=== PATIENT | female | born 1975 | race Caucasian/White ===

== ENCOUNTER 2018-03-27 10:19 | Outpatient (CLI) | payer OTHER ==
--- NOTE | 2018-03-27 12:04 | RAD ---
LEFT SHOULDER ARTHROGRAM: History: Shoulder pain. No known injury. FINDINGS: After informed consent was obtained, the patient was prepped and draped in normal sterile fashion. Lo twila anesthesia was obtained with 1% Xylocaine. A 22 gauge needle was inserted into the anterior lower third of the joint space without difficulty. Approximately 12 cc of a mixture of dilute MultiHance a nd nonionic contrast were injected with good opacification of the joint space. The patient tolerated the procedure well. There were no immediate complications. IMPRESSION: Successful left shoulder arthrogram. Please see MRI report concerning findings. POS: [facility]
--- NOTE | 2018-03-27 14:34 | MRI ---
POST ARTHROGRAM MRI OF LEFT SHOULDER PERFORMED WITH CONTRAST: Date: 03/27/18 HISTORY: Left shoulder pain. No known injury. FINDINGS: The AC joint appears unremarkable. The acromion is a curved acromion with slight anterior hooking thr ough the acromion. The supra and infraspinatus tendons appear intact. Subscapularis muscle and tendon are normal in appearance. The biceps tendon is normal in position. Labrum appears intact. No signs of any labral tear. Inferior glenohumeral ligament is intact. IMPRESSION: 1. No evidence of rotator cuff or labral injury. 2. Slight anterior hooking to the acromion. POS: [facility]
== END 2018-03-27 10:20 | disposition home or self-care (01) ==
LOC: RAD 10:19
PROVIDERS: ATTEND Pediatrics Sports Medicine
DX: M25.512 Pain in left shoulder (principal)
CPT/HCPCS: 23350

== ENCOUNTER 2018-04-09 13:40 | Outpatient (CLI) | payer OTHER | END 2018-04-09 13:41 | disposition home or self-care (01) | LOC: BICMAMMO 13:40 | PROVIDERS: ATTEND Nurse Practitioner Family | DX: Z12.31 Encounter for screening mammogram for malignant neoplasm of breast (principal); Z98.82 Breast implant status | CPT/HCPCS: 77063; 77067 ==

== ENCOUNTER 2018-10-08 11:10 | Outpatient (CLI) | payer OTHER ==
--- NOTE | 2018-10-08 11:24 | RAD ---
CERVICAL SPINE THREE VIEWS: HISTORY: Neck pain. TECHNIQUE: AP, lateral, and open-mouth odontoid views of the cervical spine are obtained. COMPARISON: Comparison made to previous exam from 04/18/2016. FINDINGS: The patient has had previous ACDF with fusion of the C5-C6 vertebral levels using plates and screws. Intervertebral disc hardware also in place. No evidence of significant interval changes seen. Vertebral bodies are unremarkable. No significant evidence of anterolisthesis or retrolisthesis is seen. No newly developed degenerating disc level seen. IMPRESSION: Stable three views cervical spine with anterior cervical diskectomy and fusion, C5-C6. Transcribed Date/Time: 10/08/2018 11:33 AM
== END 2018-10-08 11:11 | disposition home or self-care (01) ==
LOC: TBSIIMAG 11:10
PROVIDERS: ATTEND Neurological Surgery
DX: M54.2 Cervicalgia (principal); Z98.1 Arthrodesis status; Z98.890 Other specified postprocedural states
CPT/HCPCS: 72040

== ENCOUNTER 2020-04-15 15:19 | Outpatient (CLI) | payer OTHER ==
--- NOTE | 2020-04-15 16:01 | MMO ---
Bilateral MAMMO Bilat Screen [facility]. CLINICAL HISTORY: Patient is 44 years old and is seen for screening. The patient has no family history of breast cancer. The patient has no personal history of cancer. The patient has a history of bilateral Implants in 2010. VIEWS: The views performed were: bilateral craniocaudal with tomosynthesis and bilateral mediolateral oblique with tomosynthesis. FILMS COMPARED: The present examination has been compared to a prior imaging study performed at [facility] on 04/09/2018. This study has been interpreted with the assistance of computer-aided detection. MAMMOGRAM FINDINGS: The breasts are heterogeneously dense, which could obscure a lesion on mammography. There are no suspicious masses, suspicious calcifications, or new areas of architectural distortion. IMPRESSION: THERE IS NO MAMMOGRAPHIC EVIDENCE OF MALIGNANCY. A ROUTINE FOLLOW-UP MAMMOGRAM IN 1 YEAR IS RECOMMENDED. THE RESULTS OF THIS EXAM WERE SENT TO THE PATIENT. ACR BI-RADS Category 1 - Negative MAMMOGRAPHY NOTE: 1. A negative mammogram report should not delay a biopsy if a dominant of clinically suspicious mass is present. 2. Approximately 10% to 15% of breast cancers are not detected by mammography. 3. Adenosis and dense breasts may obscure an underlying neoplasm. Reported by: ANGELA PALACIOS MD Electonically Signed: [id number]
== END 2020-04-15 15:20 | disposition home or self-care (01) ==
LOC: BICMAMMO 15:19
PROVIDERS: ATTEND Obstetrics & Gynecology
DX: Z12.31 Encounter for screening mammogram for malignant neoplasm of breast (principal); Z98.82 Breast implant status
CPT/HCPCS: 77063; 77067

== ENCOUNTER 2022-12-12 07:28 | Outpatient (CLI) | payer OTHER | END 2022-12-12 07:29 | disposition home or self-care (01) | LOC: BICULT 07:28 | PROVIDERS: ATTEND Physician Assistant | DX: R10.30 Lower abdominal pain, unspecified (principal); N83.201 Unspecified ovarian cyst, right side; N83.202 Unspecified ovarian cyst, left side | CPT/HCPCS: 76700; 76856; 93976 ==

== ENCOUNTER 2023-01-10 07:47 | Outpatient (CLI) | payer OTHER ==
[2023-01-10] MEDS ORDERED: Iopamidol 370 76% 100 ML VIAL ONE (14:50)
== END 2023-01-10 07:48 | disposition home or self-care (01) ==
LOC: CT 07:47
PROVIDERS: ATTEND Obstetrics & Gynecology
DX: R19.09 Other intra-abdominal and pelvic swelling, mass and lump (principal)
CPT/HCPCS: 74178; Q9967